=== PATIENT | male | born 1945 | race Two or more races ===

== ENCOUNTER 2023-05-05 16:51 | Emergency (ER) | payer MEDICARE, OTHER ==
[~2023-05-05] VITALS: Ht 172.7 cm; Wt 77.1 kg
[2023-05-05 17:02] VITALS: BP 160/130; PULSE 96; RESP 18; TEMP 98.1; O2SAT 98
[2023-05-05] MEDS ORDERED: TENECTEPLASE 50 MG KIT IV ONE ×2 (19:00→19:30)
[2023-05-05] MEDS ORDERED: LABETALOL 20 MG/4 ML VIAL IVP ONE ×2 (19:05)
[2023-05-05 19:10] LABS: BASOPHILS # (AUTO) 0.1 K/uL (0.00-0.22); BASOPHILS % (AUTO) 0.4 % (0.0-2.0); HEMATOCRIT 36.3 % (36-52); HEMOGLOBIN 12.5 g/dL (12.0-18.0); LYMPHOCYTES # (AUTO) 0.9 K/uL (2.0-11.5); LYMPHOCYTES % (AUTO) 6.6 % (20.5-51.1); MEAN CORPUSCULAR HEMOGLOBIN 29 pg (27-31); MEAN CORPUSCULAR HGB CONC 35 g/dL (33-37); MEAN CORPUSCULAR VOLUME 85.2 fL (80-94); MONOCYTES % (AUTO) 7.4 % (1.7-9.3); NEUTROPHILS # (AUTO) 11.6 K/uL (1.8-7.7); NEUTROPHILS % (AUTO) 85.6 % (42.2-75.2); PLATELET COUNT (AUTO) 196 K/uL (140-450); RED BLOOD CELL COUNT(AUTO) 4.26 MIL/uL (4.20-6.10); RED CELL DISTRIBUTION WIDTH 13.6 % (11.6-13.7); WHITE BLOOD COUNT (AUTO) 13.5 K/uL (4.8-10.8)
[2023-05-05 19:14] LABS: BILIRUBIN,URINE NEGATIVE (NEGATIVE); BLOOD, URINE TRACE-I (NEGATIVE); COLOR,URINE YELLOW (YELLOW); LEUKOCYTE ESTERASE ,URINE NEGATIVE (NEGATIVE); NITRITE, URINE NEGATIVE (NEGATIVE); PROTEIN,URINE NEGATIVE (NEGATIVE); UGLUCOSE 3+ (NEGATIVE); UROBILINOGEN,URINE 0.2 EU/dL (0.2 - 1)
[2023-05-05 19:16] LABS: APPEARANCE,URINE SLIGHTLY HAZY (CLEAR)
[2023-05-05 19:19] LABS: ACETONE, SERUM Negative (NEGATIVE)
[2023-05-05 19:24] LABS: INR 1.02 (0.8-1.2); PARTIAL THROMBOPLASTIN TIME 30.2 secs (22-35.6); PROTHROMBIN TIME 10.7 secs (10.8-13.4)
[2023-05-05 19:25] LABS: BACTERIA,URINE FEW /HPF (None Seen); RBC,URINE 0-5 /HPF (0-5); SQUAMOUS EPITHELIAL CELL,UR 0-3 (FEW) /LPF (0-3 (FEW))
[2023-05-05 19:26] LABS: ANION GAP 16.8 (8-16); CALCIUM 8.7 mg/dL (8.5-10.1); CARBON DIOXIDE 21.6 mmol/L (21-32); CHLORIDE 102 mmol/L (98-107); GLUCOSE 345 mg/dL (74-106); POTASSIUM 3.4 mmol/L (3.5-5.1); SODIUM SERUM 137 mmol/L (136-145); UREA NITROGEN, BLOOD 17 mg/dL (7-18)
[2023-05-05 19:27] LABS: LIPASE 21 U/L (16-77)
[2023-05-05 19:34] LABS: ALANINE AMINOTRANSFERASE 17 U/L (12-78); ALBUMIN 2.8 g/dL (3.4-5.0); ALKALINE PHOSPHATASE 93 U/L (50-136); ASPARTATE AMINOTRANSFERASE 9 U/L (15-37); BILIRUBIN,DIRECT 0.2 mg/dL (0.0-0.3); TOTAL BILIRUBIN 0.9 mg/dL (0.0-1.0); TOTAL PROTEIN, SERUM 7.3 g/dL (6.4-8.2)
[2023-05-05 19:59] VITALS: BP 158/78; PULSE 109; RESP 18; TEMP 98.1; O2SAT 97
== END 2023-05-05 19:59 | disposition short-term general hospital (02) ==
LOC: MED 16:51
DX: R53.1 Weakness (principal); M54.2 Cervicalgia; R29.810 Facial weakness; R27.0 Ataxia, unspecified; I10 Essential (primary) hypertension; E11.9 Type 2 diabetes mellitus without complications; E78.5 Hyperlipidemia, unspecified; Z88.1 Allergy status to other antibiotic agents; Z98.890 Other specified postprocedural states
CPT/HCPCS: 36415; 37195; 70450; 70496; 70498; 71045; 72125; 80048; 80076; 81001; 82009; 82948; 83690; 84484; 85025; 85610; 85730; 86886; 86900; 86901; 87086; 93005; 96374; 99291; J3101; J3490; Q0092; Q9967